=== PATIENT | female | born 1960 | race Hispanic/Latino ===

== ENCOUNTER 2016-12-21 17:56 | Emergency (ER) | payer BC ==
[2016-12-21 18:32] VITALS: BMI 24.3
[2016-12-21 18:37] VITALS: TEMP 98.7; O2SAT 95
[2016-12-21] MEDS ORDERED: Lidocaine 5% Patch TD STA (19:54)
--- NOTE | 2016-12-21 19:54 | ED PDOC ---
Arrival/HPI - General Chief Complaint: Back Pain Time Seen by Provider: 12/21/16 19:46 Historian: Patient - History of Present Illness Narrative History of Present Illness (Text): 12/21/16 19:47 56 y/o female, pmh including htn/asthma/chronic lower back pain, nkda, c/o lower back pain on and off this week with no fall or trauma. Aching pain, aggravated by movement, radiating to the rt. lower extremity, no calf pain, no urinary or bowel incontinence or retention, no flank pain, no night sweat, no dizziness, no other medical or psychological complaints. Past Medical History - Provider Review Nursing Documentation Reviewed: Yes - Infectious Disease Hx of Infectious Diseases: None - Tetanus Immunization Tetanus Immunization: Up to Date - Reproductive Menopause: Yes - Cardiac Hx Hypertension: Yes - Pulmonary Hx Asthma: Yes - Neurological Hx Neurological Disorder: No Hx Migraine: Yes - HEENT Hx HEENT Disorder: No - Renal Hx Renal Disorder: No - Endocrine/Metabolic Hx Hypothyroidism: Yes - Hematological/Oncological Hx Blood Disorders: No - Integumentary Hx Dermatological Disorder: No - Musculoskeletal/Rheumatological Hx Musculoskeletal Disorders: No - Gastrointestinal Hx Gastrointestinal Disorders: No - Genitourinary/Gynecological Hx Genitourinary Disorders: No - Psychiatric Hx Anxiety: Yes Hx Bipolar Disorder: No Hx Depression: No Hx Physical Abuse: No Hx Substance Use: No - Surgical History Hx Thyroidectomy: Yes (11yrs old) - Anesthesia Hx Anesthesia: Yes Hx Anesthesia Reactions: No Hx Malignant Hyperthermia: No - Suicidal Assessment Feels Threatened In Home Enviroment: No Family/Social History - Physician Review Nursing Documentation Reviewed: Yes Family/Social History: Unknown Family HX Smoking Status: Heavy Smoker > 10 Cigarettes Daily Hx Alcohol Use: Yes Hx Substance Use: No Hx Substance Use Treatment: No Allergies/Home Meds Allergies/Adverse Reactions: Allergies No Known Allergies Allergy (Verified 03/24/15 12:00) Home Medications: Home Meds Medication Instructions Recorded Confirmed Alprazolam [Xanax] 0.25 mg PO BID 01/11/14 04/12/15 Nebivolol [Bystolic] 5 mg PO DAILY 01/11/14 04/12/15 Spironolactone [Aldactone] 25 mg PO DAILY 06/29/14 04/12/15 Ursodiol 250 mg PO BID 01/26/15 07/24/15 Zolpidem Tartrate [Ambien] 5 mg PO HS 10/15/14 04/12/15 Albuterol Sulfate [Proair Hfa] 2 puff IH PRN PRN 03/24/15 04/12/15 Review of Systems - Review of Systems Constitutional: absent: Fatigue, Fevers Eyes: absent: Vision Changes ENT: absent: Hearing Changes Respiratory: absent: Cough, Sputum Cardiovascular: absent: Chest Pain Gastrointestinal: absent: Abdominal Pain, Nausea, Vomiting Genitourinary Female: absent: Dysuria, Frequency, Hematuria, Urine Output Changes, Vaginal Bleeding, Vaginal Discharge, Other Musculoskeletal: Back Pain. absent: Arthralgias, Neck Pain, Joint Swelling, Myalgias Skin: absent: Rash, Pruritis, Skin Lesions, Laceration, Abscess, Ulcer, Cellulitis Neurological: absent: Headache, Dizziness, Focal Weakness, Gait Changes, Speech Changes, Facial Droop, Disequilibrium, Seizure, Other Physical Exam Vital Signs Reviewed: Yes Vital Signs Temp Pulse Resp BP Pulse Ox 12/21/16 18:32 98.7 F 77 18 144/93 H 95 Temperature: Afebrile Blood Pressure: Normal Pulse: Regular Respiratory Rate: Normal Appearance: Positive for: Well-Appearing, Non-Toxic, Comfortable Pain Distress: Moderate Mental Status: Positive for: Alert and Oriented X 3 - Systems Exam Head: Present: Atraumatic, Normocephalic Pupils: Present: PERRL Extroacular Muscles: Present: EOMI Conjunctiva: Present: Normal Mouth: Present: Moist Mucous Membranes Neck: Present: Normal Range of Motion Respiratory/Chest: Present: Clear to Auscultation, Good Air Exchange. No: Respiratory Distress, Accessory Muscle Use Cardiovascular: Present: Regular Rate and Rhythm, Normal S1, S2. No: Murmurs Abdomen: Present: Normal Bowel Sounds. No: Tenderness, Distention, Peritoneal Signs Back: Present: Normal Inspection, Pain with Leg Raise (unable to perform due to pain). No: CVA Tenderness, Midline Tenderness, Paraspinal Tenderness, Decubitus Ulcer Upper Extremity: Present: Normal Inspection. No: Cyanosis, Edema Lower Extremity: Present: Normal Inspection. No: Edema Neurological: Present: GCS=15, CN II-XII Intact, Speech Normal Skin: Present: Warm, Dry, Normal Color. No: Rashes Psychiatric: Present: Alert, Oriented x 3, Normal Insight, Normal Concentration Medical Decision Making ED Course and Treatment: 12/21/16 19:56 -toradol IM/flexeril/lidoderm patch -observe and reassess 12/21/16 20:43 -Pt. feels better now, no focal neurological deficits, cane ordered. Pt. stated that she has her own orthopedic spine doctor she's been following up which I advised her to continue. -Discharge home with mobic, lidoderm patch, muscle relaxant, cane, heat compression, follow up with your own pmd and orthopedic workers compensation claims specialist within 2 days, return to the ER for any new or worsening signs or symptoms. - Medication Orders Current Medication Orders: Discontinued Medications Cyclobenzaprine HCl (Flexeril) 10 mg PO STAT STA Stop: 12/21/16 19:55 Last Admin: 12/21/16 20:14 Dose: Not Given Non-Admin Reason: Patient Refused Ketorolac Tromethamine (Toradol) 60 mg IM STAT STA Stop: 12/21/16 19:55 Last Admin: 12/21/16 20:14 Dose: 60 MG IM Administration Charges Document 12/21/16 20:14 YP (Rec: 12/21/16 20:14 YP [id number]) Injection Site MAR Injection Site Right Gluteus Sarmad Charges for Administration # of IM Administrations 1 Lidocaine (Lidoderm) 1 ea TD STAT STA Stop: 12/21/16 19:55 Last Admin: 12/21/16 20:14 Dose: 1 EA MAR Transdermal Patch Site Document 12/21/16 20:14 YP (Rec: 12/21/16 20:14 YP [id number]) Transdermal Patch Site Transdermal Patch Site Right Lower Back - PA / [employer]TING [employer] / Resident Statement MD/DO has reviewed & agrees with the documentation as recorded. Disposition/Present on Arrival - Present on Arrival Any Indicators Present on Arrival: No History of DVT/PE: No History of Uncontrolled Diabetes: No Urinary Catheter: No History of Decub. Ulcer: No History Surgical Site Infection Following: None - Disposition Have Diagnosis and Disposition been Completed?: Yes Diagnosis: Chronic lower back pain, Sciatica Disposition: HOME/ ROUTINE Disposition Time: 19:57 Patient Plan: Discharge Patient Problems: Current Active Problems Problem Status Diagnosed Chronic lower back pain Acute Sciatica Acute Condition: IMPROVED Additional Instructions: Discharge home with mobic, lidoderm patch, muscle relaxant, cane, heat compression, follow up with your own pmd and orthopedic workers compensation claims specialist within 2 days, return to the ER for any new or worsening signs or symptoms. Prescriptions: Lidocaine 5% [Lidoderm] 1 patch TOP DAILY PRN #14 patch PRN Reason: Other Meloxicam [Mobic] 15 mg PO DAILY PRN #14 tab PRN Reason: Other Methocarbamol [Robaxin] 2 tab PO TID PRN #24 tab PRN Reason: Other Referrals: Namrata Albrecht MD [Primary Care Provider] - Follow up with primary Paul Dumont III, MD [Medical Doctor] - Follow up with primary [facility] [place]] - Follow up with primary Forms: WORK NOTE
[2016-12-21 21:05] VITALS: BP 134/86; PULSE 72; RESP 16
== END 2016-12-21 21:10 | disposition home or self-care (01) ==
LOC: ED 17:56
DX: G89.29 Other chronic pain (principal); M54.5 Low back pain; M54.30 Sciatica, unspecified side; F17.210 Nicotine dependence, cigarettes, uncomplicated; I10 Essential (primary) hypertension
CPT/HCPCS: 96372; 99283; J1885

== ENCOUNTER 2017-05-08 01:15 | Observation (INO) | payer BC ==
[2017-05-08 02:00] LABS: ALB/GLOB RATIO 1.2 (1.1-1.8); ALKALINE PHOSPHATASE 115 U/L (38-133); ALT/SGPT 63 U/L (7-56); AST/SGOT 42 U/L (15-39); BILIRUBIN,TOTAL 0.3 mg/dL (0.2-1.3); BLOOD UREA NITROGEN 12 mg/dL (7-21); CALCIUM 9.1 mg/dL (8.4-10.5); CARBON DIOXIDE 25 mmol/L (21-33); CHLORIDE 104 mmol/L (98-107); GFR AFRICAN-AMERICAN > 60; GLUCOSE,RANDOM 104 mg/dL (70-110); MAGNESIUM 1.8 mg/dL (1.7-2.2); POTASSIUM 3.7 mmol/L (3.6-5.0); SODIUM 141 mmol/L (132-148); TOTAL PROTEIN 7.1 g/dL (5.8-8.3)
--- NOTE | 2017-05-08 02:01 | ED PDOC ---
Arrival/HPI - General Chief Complaint: Chest Pain Time Seen by Provider: 05/08/17 01:30 Historian: Patient - History of Present Illness Narrative History of Present Illness (Text): 05/08/17 02:05 56 year old female, whose past medical history includes hypertension, asthma, chronic lower back pain, and partial thyroidectomy, presents to the emergency department complaining of constant retro-sternal chest discomfort. Patient describes discomfort as pressure. No relieving or exacerbating factors and does not radiate to the back. No ripping or tearing sensation. Patient notes no shortness of breath, but denies of any other complaints. Symptom Onset: Sudden Context: Home Past Medical History - Provider Review Nursing Documentation Reviewed: Yes - Infectious Disease Hx of Infectious Diseases: None - Tetanus Immunization Tetanus Immunization: Up to Date - Cardiac Hx Hypertension: Yes Hx Hypotension: Yes Other/Comment: "blood pressure goes up and down" - Pulmonary Hx Asthma: Yes - Neurological Hx Neurological Disorder: No HX Cerebrovascular Accident: Yes Hx Migraine: Yes - HEENT Hx HEENT Disorder: No - Renal Hx Renal Disorder: No - Endocrine/Metabolic Hx Hypothyroidism: Yes Other/Comment: Partial thyroidectomy - Hematological/Oncological Hx Blood Disorders: No Hx Hepatitis C: Yes - Integumentary Hx Dermatological Disorder: No - Musculoskeletal/Rheumatological Hx Musculoskeletal Disorders: No - Gastrointestinal Hx Gastrointestinal Disorders: No - Genitourinary/Gynecological Hx Genitourinary Disorders: No Hx Urinary Tract Infection: Yes (+ yeast infection) - Psychiatric Hx Anxiety: Yes Hx Bipolar Disorder: No Hx Depression: No Hx Physical Abuse: No Hx Substance Use: No - Surgical History Hx Thyroidectomy: Yes (11yrs old) - Anesthesia Hx Anesthesia: Yes Hx Anesthesia Reactions: No Hx Malignant Hyperthermia: No - Suicidal Assessment Feels Threatened In Home Enviroment: No Family/Social History - Physician Review Nursing Documentation Reviewed: Yes Family/Social History: No Known Family HX Smoking Status: Heavy Smoker > 10 Cigarettes Daily Hx Alcohol Use: Yes Hx Substance Use: No Hx Substance Use Treatment: No Allergies/Home Meds Allergies/Adverse Reactions: Allergies No Known Allergies Allergy (Verified 03/24/15 12:00) Home Medications: Home Meds Medication Instructions Recorded Confirmed Alprazolam [Xanax] 0.25 mg PO BID 01/11/14 05/08/17 Nebivolol [Bystolic] 5 mg PO DAILY 01/11/14 05/08/17 Spironolactone [Aldactone] 25 mg PO DAILY 06/29/14 05/08/17 Zolpidem Tartrate [Ambien] 5 mg PO HS PRN 10/15/14 05/08/17 Nitrofurantoin Macrocrystals 1 cap PO Q12H 05/08/17 05/08/17 [Macrobid] traMADol [Ultram] 1 tab PO DAILY PRN 05/08/17 05/08/17 Physical Exam - Physical Exam Narrative Physical Exam (Text): 05/08/17 02:10 - Review of Systems Constitutional: Normal. absent: Fatigue, Weight Change, Fevers Eyes: Normal ENT: Normal Respiratory: Normal. absent: Cough, Sputum, SOB Cardiovascular: Normal Chest pain (retro-sternal chest pressure, discomfort ) absent: Palpitations, Syncope Gastrointestinal: Normal absent: Abdominal pain, Diarrhea, Nausea, Vomiting Genitourinary: Normal. absent: Dysuria, Frequency, Hematuria Musculoskeletal: Normal. absent: Arthralgias, Back Pain, Neck Pain Skin: Normal Neurological: Normal absent: Focal Weakness Endocrine: Normal Hemo/Lymphatic: Normal Psychiatric: Normal - Physical exam Patient appears age appropriate, speaking full sentences without difficulty - Systems Exam Head: Present: Atraumatic, Normocephalic Pupils: Present: PERRL Extraocular Muscles: Present: EOMI Conjunctiva: Present: Normal Mouth: Present: Moist Mucous Membranes Neck: Present: Normal Range of Motion. No: MIDLINE TENDERNESS, Paraspinal Tenderness Respiratory/Chest: Present: Clear to Auscultation, Good Air Exchange. No: Respiratory Distress, Accessory Muscle Use, Tachypnic Cardiovascular: Present: Regular Rate and Rhythm, Normal S1, S2, Peripheral Pulses Present. No: Murmurs Abdomen: Present: Normal Bowel Sounds, No: Tenderness, Peritoneal Signs, Rebound, Guarding, Distention Back: Present: Normal Inspection. No: Midline Tenderness, Paraspinal Tenderness Upper Extremity: Present: Normal Inspection. No: Cyanosis, Edema Lower Extremity: Present: Normal Inspection. No: Edema Neurological: Present: GCS=15, Speech Normal, cranial nerves II through XII fully intact with no cerebellar abnormality, neuro-sensory fully intact. No focal neurological deficits. Skin: Present: Warm, Dry, Normal Color. No: Rashes Lymphatic: Present: OX3, NI, NC Psychiatric: Present: Alert, Oriented x 3, Normal Insight, Normal Concentration Vital Signs Reviewed: Yes Vital Signs Temp Pulse Resp BP Pulse Ox 05/08/17 02:59 61 16 111/77 95 05/08/17 01:24 98.1 F 80 20 148/76 97 Temperature: Afebrile Blood Pressure: Normal Pulse: Regular Respiratory Rate: Normal Appearance: Positive for: Well-Appearing Pain Distress: None Mental Status: Positive for: Alert and Oriented X 3 Medical Decision Making ED Course and Treatment: Impression: 56 year old female with constant retro-sternal chest discomfort described as pressure. No acute finding on physical exam Plan: -- Chest X-ray -- Urinalysis -- Urine Culture -- Aspirin -- Nitrostat -- Reassess and disposition Prior Visits: Notes and results from previous visits were reviewed. Patient was last seen in the emergency department on 12/21/2016 for lower back pain. Patient was discharged home. Progress Notes: EKG shows NSR at [address]-segment elevations, frequent PVCs. Interpreted by me. No evolving changes on repeat EKG. 05/08/17 02:30 Chest X-ray read and interpreted by me, which shows no cardiomegaly, no pneumothorax, no effusions. 05/08/17 02:[address] Allen and accepts patient for observation with Dr. Clinton on consult. Reevaluation: I have discussed the results and plan with the patient, who expresses understanding. Patient given the opportunity to ask question, all questions were answered and there is agreement with the plan to be admitted to the hospital. Patient states she is feeling better and her cp has resolved. - Lab Interpretations Lab Results: 05/08/17 01:25 05/08/17 01:25 Lab Results 05/08/17 01:50: Urine Color Yellow, Urine Appearance Clear, Urine pH 6.0, Ur Specific [place] 1.015, Urine Protein Negative, Urine Glucose (UA) Negative, Urine Ketones Negative, Urine Blood Negative, Urine Nitrate Negative, Urine Bilirubin Negative, Urine Urobilinogen 1.0 H, Ur Leukocyte Esterase Small H, Urine RBC 1 - 3, Urine WBC 0 - 2, Ur Epithelial Cells 3 - 4, Urine Bacteria Many , Urine Other Fiber 05/08/17 01:25: Sodium 141, Potassium 3.7, Chloride 104, Carbon Dioxide 25, Anion Gap 16, BUN 12, Creatinine 0.7, Est GFR ( Amer) > 60, Est GFR (Non- Af Amer) > 60, Random Glucose 104, Calcium 9.1, Magnesium 1.8, Total Bilirubin 0.3, AST 42 H, ALT 63 H, Alkaline Phosphatase 115, Lactate Dehydrogenase 391, Total Creatine Kinase 61, Troponin I < 0.01, Total Protein 7.1, Albumin 3.9, Globulin 3.2, Albumin/Globulin Ratio 1.2 05/08/17 01:25: PT 10.8, INR 1.00, APTT 30.0 05/08/17 01:25: WBC 10.1 D, RBC 4.50, Hgb 14.1, Hct 40.5, MCV 90.0, MCH 31.3, MCHC 34.8, RDW 13.5, Plt Count 210, MPV 11.7 H, Gran % 44.2 L, Lymph % (Auto) 41.9 H, Dillon % (Auto) 10.5 H, Eos % (Auto) 3.1, Baso % (Auto) 0.3, Gran # 4.44, Lymph # 4.2 H, Dillon # 1.1 H, Eos # 0.3, Baso # 0.03 I have reviewed the lab results: Yes - RAD Interpretation Radiology Orders: 05/08/17 01:31 CHEST PORTABLE [RAD] Stat - Medication Orders Current Medication Orders: Discontinued Medications Aspirin (Aspirin) 325 mg PO STAT STA Stop: 05/08/17 01:31 Last Admin: 05/08/17 01:40 Dose: 325 mg Nitroglycerin (Nitrostat Sl Tab) 0.4 mg SL STAT STA Stop: 05/08/17 01:31 Last Admin: 05/08/17 01:40 Dose: 0.4 mg - Scribe Statement The provider has reviewed the documentation as recorded by the Abhijit Harvey Provider Scribe Attestation: All medical record entries made by the Abhijit were at my direction and personally dictated by me. I have reviewed the chart and agree that the record accurately reflects my personal performance of the history, physical exam, medical decision making, and the department course for this patient. I have also personally directed, reviewed, and agree with the discharge instructions and disposition. Disposition/Present on Arrival - Present on Arrival Any Indicators Present on Arrival: No History of DVT/PE: No History of Uncontrolled Diabetes: No Urinary Catheter: No History of Decub. Ulcer: No History Surgical Site Infection Following: None - Disposition Have Diagnosis and Disposition been Completed?: Yes Diagnosis: Chest pain Disposition: HOSPITALIZED Disposition Time: 02:35 Patient Plan: Observation Condition: STABLE
[2017-05-08 02:02] LABS: BASO # 0.03 K/mm3 (0.0-2.0); BASO % 0.3 % (0.0-3.0); EOS # 0.3 (0.0-0.7); EOS % 3.1 % (1.5-5.0); GRAN # 4.44 (1.4-6.5); GRAN % 44.2 % (50.0-68.0); HEMATOCRIT 40.5 % (36.0-48.0); LYMPH # 4.2 (1.2-3.4); LYMPH % 41.9 % (22.0-35.0); MEAN CORPUSCULAR HEMOGLOBIN 31.3 pg (25.0-35.0); MEAN CORPUSCULAR HGB CONC 34.8 g/dl (31.0-37.0); MEAN PLATELET VOLUME 11.7 fl (7.0-11.0); MONO # 1.1 (0.1-0.6); MONO % 10.5 % (1.0-6.0); RED CELL DISTRIBUTION WIDTH 13.5 % (11.5-14.5); WHITE BLOOD COUNT 10.1 10^3/ul (4.5-11.0)
[2017-05-08 02:05] LABS: URINE BILIRUBIN NEGATIVE (NEGATIVE); URINE BLOOD NEGATIVE (NEGATIVE); URINE GLUCOSE (UA) NEGATIVE (NEGATIVE); URINE KETONE NEGATIVE (NEGATIVE); URINE LEUKOCYTE ESTERASE SMALL Leu/uL (NEGATIVE); URINE PROTEIN NEGATIVE mg/dL (<30 mg/dL)
[2017-05-08 02:06] LABS: URINE APPEARANCE CLEAR (CLEAR); URINE COLOR YELLOW (YELLOW)
[2017-05-08 02:12] LABS: TROPONIN I < 0.01 ng/mL
[2017-05-08 02:20] LABS: URINE BACTERIA MANY (NEG); URINE WBC 0 - 2 /hpf (0-6)
[2017-05-08 04:44] VITALS: BMI 23.3
--- NOTE | 2017-05-08 11:18 | RAD ---
HISTORY: cp COMPARISON: 03/24/2015 FINDINGS: LUNGS: No active pulmonary disease. PLEURA: No significant pleural effusion identified, no pneumothorax apparent. CARDIOVASCULAR: Normal. OSSEOUS STRUCTURES: No significant abnormalities. VISUALIZED UPPER ABDOMEN: Normal. OTHER FINDINGS: None. IMPRESSION: No active disease.
--- NOTE | 2017-05-08 13:21 | CARD ---
APPROVED REPORT EKG Measurement Heart [id number] [place] [id number] <Conclusion> Sinus rhythm with frequent premature ventricular complexes Otherwise normal ECG
--- NOTE | 2017-05-08 13:23 | CARD ---
APPROVED REPORT EKG Measurement Heart [id number] [place] [id number] <Conclusion> Sinus rhythm with frequent premature ventricular complexes Possible Left atrial enlargement Borderline ECG
--- NOTE | 2017-05-08 13:24 | CARD ---
APPROVED REPORT EKG Measurement Heart [id number] [place] [id number] <Conclusion> Sinus rhythm with frequent premature ventricular complexes Possible Left atrial enlargement Borderline ECG
--- NOTE | 2017-05-08 16:45 | CON ---
DATE: 05/08/2017 REASON FOR CONSULTATION: Chest pain. HISTORY OF PRESENT ILLNESS: This is a 56-year-old woman smoker with history of hypertension, COPD, and asthma, who was admitted yesterday through the emergency room, complaining of a pressure type upper sternal discomfort which began the evening before. It got worse yesterday. It did not respond to local measures, change in body position or activity. It was not associated with shortness of breath. It was not pleuritic. There was no orthopnea, PND, syncope, presyncope, lightheadedness, dizziness, vertigo, palpitations, edema, claudication, fever, chills, cough, sputum production, hemoptysis, abdominal pain, nausea, vomiting, diarrhea, constipation, or melena. PAST MEDICAL HISTORY: Notable for COPD, asthma. She has had hospitalizations for bronchitis. There is a history of hypertension. She sees Dr. Kennedy. There is a history of a thyroid nodule, hepatitis C, chronic back pain. Around 10 or more years ago, she underwent a cardiac catheterization in [facility]. Apparently, this study was unremarkable. She had a stress test many years ago, but not recently. There is no history of rheumatic fever, myocardial infraction, congestive heart failure, diabetes, stroke, TIA, or gout. MEDICATION AT THE TIME OF ADMISSION: Includes spironolactone (taken sporatically), Bystolic, Xanax, Ambien, nitrofurantoin, and Ultram. ALLERGIES: THERE ARE NO MEDICATION ALLERGIES. SOCIAL HISTORY: She lives at home with her children. She is . She works for the [employer]. She smokes approximately one half pack of cigarettes per day. She does not drink alcohol significantly. There is no drug use reported. FAMILY HISTORY: Notable for heart disease. REVIEW OF SYSTEMS: A 10-point review of systems is otherwise unremarkable expect as noted above. PHYSICAL EXAMINATION: GENERAL: She is a well-developed woman, lying on bed on telemetry in no acute distress. VITAL SIGNS: Notable for sinus rhythm with PVCs. Heart rate 66, afebrile. Blood pressure 107/65, respirations 16 to 20, O2 saturation 95% to 96% on room air. HEENT: Reveals no neck vein distention, thyromegaly, carotid bruits. Mucous membranes are moist. Conjunctivae pink. NECK: Supple. LUNGS: Stanley scattered rhonchi. HEART: Revealed normal 1st and 2nd heart sounds. No murmur gallop rub or click. ABDOMEN: Soft. Bowel sounds were present. No mass, organomegaly, tenderness, rebound, guarding. No CVA tenderness, no palpable abdominal aortic aneurysm. EXTREMITIES: Revealed no cyanosis, clubbing or edema. NEUROLOGIC: She is awake, alert and oriented and intact. PSYCHIATRIC: Normal as to mood and affect. SKIN: Warm and dry. No rash or cellulitis. LABORATORY AND IMAGING: EKG demonstrate regular sinus rhythm with a leftward axis, trigeminal PVCs, poor R wave progression, nonspecific ST wave changes. A portable chest x-ray is not interpreted yet. There is no evidence of CHF, pleural effusion or infiltrate. There are increased markings consistent was COPD by my reading. CBC is unremarkable, PT/INR, PTT unremarkable. Electrolytes BUN, creatinine, blood sugar, magnesium unremarkable. Bilirubin normal. AST, ALT mildly elevated. Alkaline phosphatase 115, CK 61, troponin less then 0.01. Urinalysis noted. IMPRESSION: Alen Miranda is a 56-year-old woman smoker who complains of chest pain, which has some typical features. Her initial EKG shows frequent PVCs, but no acute ST-T wave changes. Her initial troponin is normal. She is a smoker with hypertension and a family history of heart disease. She had a negative cardiac catheterization more than 10 years ago. PLAN: At this time, I agree with current plans. She is on telemetry. I will get an EKG and troponin this morning. I will order a lipid level and an echocardiogram. I will continue her usual medications including spironolactone, Bystolic, and aspirin. She has been advised to discontinue smoking. I will arrange a nuclear stress test for her, perhaps on Wednesday if it can be arranged. She can be out of bed. I will follow along with you. I will make additional recommendations based on her clinical course. Carlito Clinton MD [place]
--- NOTE | 2017-05-09 02:46 | HP ---
HISTORY OF PRESENT ILLNESS: This 56-year-old female was examined at her bedside. Her case was reviewed in detail with Dr. Clinton from Cardiology and her nurse, Geraldine Baeza. The patient presented to the [facility] ER complaining of chest pressure which was substernal, began Wednesday evening and was unrelieved by change in position, antacid, or carbonated beverage. The patient came to the emergency room where she was given sublingual nitroglycerin with resolution and admitted for further evaluation of possible unstable angina because of history of hypertension and chronic smoking. PAST MEDICAL HISTORY: The patient's past medical history is also significant for asthma, COPD, history of chronic hepatitis C for which she follows with Dr. Shane Low, Gastroenterology, but is taking no medication for hepatitis C at present. She has a history of a stable thyroid nodules, degenerative arthritis, and according to the patient she had a cardiac catheterization at the [facility] approximately 10 years ago which was reportedly unremarkable. FAMILY HISTORY: Significant for coronary artery disease. SOCIAL HISTORY: The patient smokes 1 pack of cigarettes daily. Does not drink alcohol daily. Denies any IV drug misuse and is employed as clerical worker at the [employer]. ALLERGIES: SHE DENIES ANY ALLERGIES TO MEDICATIONS. CURRENT MEDICATIONS: Includes Xanax, Ambien, Macrobid, Ultram, Bystolic, and Aldactone. REVIEW OF SYSTEMS: Head review, no headache or seizure. Eyes review, no change in visual acuity. Ear review, no hearing loss. Throat review, no swallowing difficulty. Neck review, no stiffness. Cardiac review, she has a history of chronic hypertension. Pulmonary, chronic obstructive pulmonary disease. She is a chronic smoker. GI, no knowledge of bleeding ulcer, but does have hepatitis C. She denies hematemesis or melena. , no dysuria, but was treated by a local urgent care recently for urinary tract infection. Vascular, no claudication. Psychological, chronic anxiety and insomnia. Endocrinologic, denies any knowledge of diabetes mellitus. PHYSICAL EXAMINATION: VITAL SIGNS: school bus monitor showing normal sinus rhythm with occasional PVCs. Temperature 97, respirations 16, pulse 97, blood pressure 116/77 with a pulse ox of 96% on room air. HEENT: Head is normocephalic, atraumatic. Eyes, no icterus. Ears, clear. Throat, noninjected. NECK: Supple. HEART: S1, S2. No pathological rubs, murmurs, or gallops. LUNGS: Clear to auscultation. ABDOMEN: Soft and nontender. No palpable organomegaly. No rebound. No guarding. No tenderness. EXTREMITIES: No clubbing, no cyanosis, no edema. SKIN: Without rash. NEUROLOGIC Intact. PSYCHOLOGICAL: Alert and oriented x3. VASCULAR: Legs warm to touch. LABORATORY DATA: White count 10,100, hemoglobin 14.1, hematocrit 40.5, platelets 210,000. PT/INR 1.0, PTT 30.6. Sodium 141, K 3.7, chloride 104, bicarb 25, BUN 12, creatinine 0.7, random blood sugar 104, magnesium normal 1.8, bilirubin normal 0.3, AST 42, ALT 63, alk phos 115. CPK 61, first troponin less than 0.01, second troponin 0.05, indeterminate. Urinalysis many bacteria. IMPRESSION: A 56-year-old female with chronic hypertension, smoking history admitted with history consistent with typical chest pain, rule out unstable angina and comorbidities of chronic obstructive pulmonary disease, chronic hypertension, anxiety neurosis, insomnia, degenerative arthritis, recent urinary tract infection. PLAN: At present, the patient will continue on the cardiac unit. She has been ordered to have a fasting lipid panel in the a.m. A repeat urine culture has been received and the patient is to continue on Aldactone 25 mg p.o. daily, aspirin 81 mg p.o. daily, Bystolic 5 mg p.o. daily, nitroglycerin sublingual p.r.n. chest pain, Xanax 0.25 mg p.o. b.i.d. p.r.n. anxiety. She is ordered to have a heart healthy diet. She is scheduled for 2D echocardiogram of the heart, interpreted by Dr. Carlito Clinton from Cardiology. He has ordered a stress test for the patient and stool for occult blood, I's and O's and out of bed to chair as tolerated. All of the above was discussed in detail with the patient. Hopefully, she will be cooperative and remained hospitalized for the evaluation, however, she did mention that she was considering signing against medical advice. This was discussed with the patient and her nurse. Hopefully, she will complete cardiac workup as outlined above. Venus Allen MD [facility] # [id number] KENIA
[2017-05-09 07:51] LABS: CHOLESTEROL 143 mg/dL (130-200)
--- NOTE | 2017-05-09 07:58 | CARD ---
APPROVED REPORT EXAM: Two-dimensional and M-mode echocardiogram with Doppler and color Doppler. Other Information Quality : GoodRhythm : INDICATION Chest Pain 2D DIMENSIONS IVSd1.1 (0.7-1.1cm)LVDd3.9 (3.9-5.9cm) PWd1.1 (0.7-1.1cm)LVDs2.9 (2.5-4.0cm) FS (%) 25.3 %LVEF (%)50.0 (>50%) M-Mode DIMENSIONS Left Atrium (MM)3.60 (2.5-4.0cm)Aortic Root2.80 (2.2-3.7cm) Aortic Cusp Exc.2.00 (1.5-2.0cm) Aortic Valve AoV Peak Emgqklrd353.0cm/s Mitral Valve MV E Gaeimvdf23.7cm/sMV A Qlpiihwc55.0cm/sE/A ratio1.3 TDI Lateral E' Peak V9.65cm/sMedial E' Peak V8.19cm/sE/Lateral E'9.6 E/Medial E'11.3 Tricuspid Valve TR Peak Jdbxrnoc528wa/sRAP [id number] Peak Gr.23mmHg [id number] LEFT VENTRICLE The left ventricle is normal size. There is normal left ventricular wall thickness. The left ventricular function is normal. The left ventricular ejection fraction is within the normal range. There is normal LV segmental wall motion. RIGHT VENTRICLE The right ventricle is normal size. ATRIA The left atrium size is normal. The right atrium size is normal. The interatrial septum is intact with no evidence for an atrial septal defect. AORTIC VALVE The aortic valve is mildly thickened. MITRAL VALVE The mitral valve is normal in structure. Mitral regurgitation is trace. TRICUSPID VALVE The tricuspid valve is normal in structure. There is trace tricuspid regurgitation. PULMONIC VALVE The pulmonary valve is normal in structure. There is trace pulmonic valvular regurgitation. GREAT VESSELS The aortic root is normal in size. PERICARDIAL EFFUSION There is no pericardial effusion. <Conclusion> The left ventricle is normal size. There is normal left ventricular wall thickness. The left ventricular function is normal.
--- NOTE | 2017-05-09 08:19 | CP.PCM.PN ---
Subjective - Date & Time of Evaluation Date of Evaluation: 05/09/17 Time of Evaluation: 07:00 - Subjective Subjective: Stable on 2R. No CP or SOB. She was very anxious last night and wanted to leave AMA. Today she wants to go home and have an out-pt stress test. I told her that it will be easier to get the stress test done promptly, tomorrow if she stays in. She seems to want to go home but will speak with Dr. Allen. V/S noted. RSR PE: Lungs: clear Cor.: S1S2 Abd.: soft Ext.: no edema Neuro.: alert Labs noted: 2nd trop 05/08 = 0.05, TC = 143, LDL pending ECG: RSR, PVCs (trigeminal). No acute changes Echo: NL LV fx., Trace MR, TR and PI. Objective - Vital Signs/Intake and Output Vital Signs (last 24 hours): Temp Pulse Resp BP Pulse Ox 98.6 F 84 19 132/86 95 05/09/17 06:00 05/09/17 06:00 05/09/17 06:00 05/09/17 06:00 05/09/17 06:00 Intake and Output: 05/09/17 05/09/17 06:59 18:59 Intake Total 950 Output Total 4 Balance 946 - Medications Medications: Current Medications Alprazolam (Xanax) 0.25 mg PO BID PRN; Protocol PRN Reason: Anxiety Stop: 05/15/17 18:01 Last Admin: 05/08/17 14:13 Dose: 0.25 mg Aspirin (Aspirin Chewable) 81 mg PO DAILY [facility] Last Admin: 05/08/17 10:46 Dose: Not Given Non-Formulary Medication (Bystolic) 5 mg PO DAILY [facility] Spironolactone (Aldactone) 25 mg PO DAILY [facility] Last Admin: 05/08/17 10:45 Dose: 25 mg - Labs Labs: PT 10.8 Seconds (9.9-11.8) 05/08/17 01:25 INR 1.00 (0.93-1.08) 05/08/17 01:25 APTT 30.0 Seconds (23.7-30.8) 05/08/17 01:25 Assessment and Plan - Assessment and Plan (Free Text) Assessment: Chest Pain PVCs COPD/Asthma/Smoker HBP Hep. C Thyroid Nodule Chronic Back Pain H/O neg cath more than 10 years ago Plan: Nuclear stress test in AM. D/C tobacco d/w her again. She wants a "drag" as soon as she leaves the hospital. If she leaves AMA, I will schedule an out-patient nuclear stress test as soon as possible but it won't be tomorrow because of insurance issues. Continue ASA, Bystolic, spironolactone OOB ad bonnie
[2017-05-09] MEDS: BYSTOLIC 5 MG PO SCH (09:33)
[2017-05-09] MEDS ORDERED: BYSTOLIC 5 MG PO SCH (10:00)
[2017-05-10 00:49] VITALS: O2SAT 98
--- NOTE | 2017-05-10 03:50 | PN ---
DATE: 05/09/2017 SUBJECTIVE: This 56-year-old female was examined at her bedside and her case was reviewed at the bedside with her nurse, Rebecca Garcia. The patient was seen earlier today by Dr. Carlito Clinton from cardiology who has recommended that the patient remained hospitalized for a stress thallium test which he has scheduled for the a.m. The patient at present remains anxious and is requesting additional dosing of Xanax. She has had no further chest pain, jaw pain, arm pain or epigastric discomfort and remains in a normal sinus rhythm on the cardiac/vascular sonographer.. PHYSICAL EXAMINATION VITAL SIGNS: Her vital signs show temperature of 97.9, respirations of 20, pulse of 65 and blood pressure of 118/80, and her pulse oximetry is 95% on room air HEENT: Head is normocephalic and atraumatic. Eyes; no icterus. Ears are clear. Throat is noninjected. NECK: Supple. HEART: Regular S1 and S2. LUNGS: Clear. ABDOMEN: Soft. EXTREMITIES: No edema. SKIN: Without rash. NEUROLOGICAL: Intact. PSYCHOLOGICAL: High anxiety. VASCULAR: Legs warm to touch. LABORATORY DATA: White count of 10,100, hemoglobin of 14.1, hematocrit of 40.5, and platelets of 210,000. PT/INR of 1.0, and PTT of 30.0. Sodium of 141, potassium of 3.7, chloride of 104, bicarbonate of 25, BUN of 12, creatinine of 0.7, and random glucose of 104. Bilirubin is 0.3, AST is 42, ALT is 63, and alkaline phosphatase is 115. Cholesterol is 143, triglycerides are 115, LDL is 78 and HDL is 38. Urine culture shows no growth. IMPRESSION: This is a 56-year-old female with typical chest pain in the setting of chronic hypertension and smoking, rule out atherosclerotic heart disease and unstable angina with comorbidities of anxiety, neurosis, insomnia and hepatitis C. PLAN: As discussed with Dr. Clinton, local delivery truck driver and her nurse, Rebecca Garcia at her bedside, the patient is to remain hospitalized. She is scheduled to be n.p.o. after midnight for stress thallium test with Dr. Clinton in the a.m. She will continue on Aldactone 25 mg p.o. daily, Ecotrin 81 mg p.o. daily, Bystolic 5 mg p.o. daily, and Xanax 0.25 mg has been increased to 3 times daily p.r.n. anxiety. She remains on heart-healthy diet, n.p.o. after midnight. She is aware that her 2D echocardiogram remains pending and she will need cardiac clearance prior to discharge orders. All this was explained in detail with the patient at her bedside. All questions were answered. Nurse was present. Venus Allen MD MTDD
--- NOTE | 2017-05-10 07:32 | CP.PCM.PN ---
Subjective - Date & Time of Evaluation Date of Evaluation: 05/10/17 Time of Evaluation: 07:00 - Subjective Subjective: Stable on 2R. No CP or SOB. V/S noted. PE: Lungs: clear Cor.: S1S2 Abd.: soft Ext.: no edema Neuro.: alert Labs noted: 2nd trop 05/08 = 0.05, TC = 143, LDL 78 ECG: RSR, PVCs (trigeminal). No acute changes Echo: NL LV fx., Trace MR, TR and PI. Objective - Vital Signs/Intake and Output Vital Signs (last 24 hours): Temp Pulse Resp BP Pulse Ox 98.0 F 68 20 125/65 98 05/10/17 06:00 05/10/17 06:00 05/10/17 06:00 05/10/17 06:00 05/10/17 06:00 Intake and Output: 05/10/17 05/10/17 06:59 18:59 Intake Total 780 Output Total 5 Balance 775 - Medications Medications: Current Medications Alprazolam (Xanax) 0.25 mg PO TID PRN; Protocol PRN Reason: Anxiety Stop: 05/16/17 14:01 Last Admin: 05/09/17 21:12 Dose: 0.25 mg Aspirin (Aspirin Chewable) 81 mg PO DAILY [facility] Last Admin: 05/09/17 09:33 Dose: 81 mg Non-Formulary Medication (Bystolic) 5 mg PO DAILY [facility] Last Admin: 05/09/17 09:33 Dose: 5 mg Spironolactone (Aldactone) 25 mg PO DAILY [facility] Last Admin: 05/09/17 09:33 Dose: 25 mg - Labs Labs: PT 10.8 Seconds (9.9-11.8) 05/08/17 01:25 INR 1.00 (0.93-1.08) 05/08/17 01:25 APTT 30.0 Seconds (23.7-30.8) 05/08/17 01:25 Assessment and Plan - Assessment and Plan (Free Text) Assessment: Chest Pain PVCs COPD/Asthma/Smoker HBP Hep. C Thyroid Nodule Chronic Back Pain H/O neg cath more than 10 years ago Plan: Nuclear stress test today. D/C tobacco. Continue ASA, Bystolic, spironolactone OOB ad bonnie Anxiolytics PRN.
[2017-05-10] MEDS: BYSTOLIC 5 MG PO SCH (11:41)
[2017-05-10 11:58] VITALS: PULSE 58; RESP 18; TEMP 98.5
--- NOTE | 2017-05-10 14:26 | CARD ---
APPROVED REPORT Protocol: BLAYNE Test Type: Sestamibi Stress Test Attending Physician: Dr. Carlito Clinton Referring Physician: Dr. Venus Allen Test Indications: Chest Pain Height:5 ft 1 in Weight:123lbs Medications: Xanax,Aspirin,Bystolic, Aldactone Medical History: 56 y/o woman smoker with chest pain. Target HR: 162 bpm Resting ECG: RSR, PVC's Resting Heart Rate: 77 bpm Resting Blood Pressure: 110/80mmHg Submaximum (85%): 138 bpm POST EXERCISE Reason for Termination: Fatigue Dyspnea Target HR: No Max HR: 139 bpm 87% of Maximum Predicted HR: 162 bpm Exercise duration: 09:09 min:sec, 4 Stage Exercise capacity: 10.3METs Max Blood Pressure: 146/82mmHg Blood Pressure response to exercise: normal resting BP - appropriate response Heart Rate response to exercise: appropriate Chest Pain: No, none Angina index: 0 Arrhythmia: Yes, frequent PVC's which decreased during exercise ST Change: No, none Deviation: 0 mm TEST SUMMARY [id number]/80.21. [id number]:[id number]/80.18. PRETESTHYPERV.00:[id number]/80.18. PRETESTWARM-UP03:[id number]/80.15. EXERCISESTAGE 103:[id number]/80.19. EXERCISESTAGE 203:[id number]/82.14. EXERCISESTAGE 303:[id number]/82.0.08:30 Contrast agent administered EXERCISESTAGE 400:[id number]/82.0. [id number]:[id number]/78.1. INTERPRETATION Stress EKG Conclusion: Symptom limited stress test which was negative for chest pain, ischemia and arrhythmia. Frequent PVC's that diminished during exercise. Mildly reduced functional capacity. Nuclear scans pending. Signed by Carlito Clinton Electronically Approved: 05/10/2017 11:04:19 EXAM: Myocardial Perfusion REST/STRESS Stress Test Type: Exercise Treadmill Imaging Protocol Rest Spect myocardial perfusion imaging was performed in supine position 50 minutes following the injection of 10.7 mCi of Tc-99 Myoview. At peak stress, the patient was injected intravenously with 30.2mCi of Tc-99 tetrofosmin after an exercise time of 9 minutes and 09 seconds. Gated Stress Spect was performed 70 minutes after intravenous Tc-99 Myoview injection. The images were gated to evaluate regional wall motion and calculate ventricular ejection fraction.Images were reconstructed using backfilter projection method in short horizontal and verticle long axis. Spect slices were generated. LV Perfusion The quality of the study is good. The left ventricle is normal in size. The right ventricle is unremarkable. The lung uptake is within normal limits. The distribution of tracer reveals normal uptake pattern throughout the LV myocardium on the stress study. The rest myocardial perfusion study shows no significant change. Wall Motion Wall motion study shows good contractility of the left ventricle. LVEF = 62%. Conclusion 1. Normal SPECT myocardial perfusion study. 2. Normal gated wall motion of the left ventricle.
[2017-05-10 16:48] VITALS: BP 125/74
--- NOTE | 2017-05-11 05:44 | DS ---
FINAL DIAGNOSES: 1. Atypical chest pain. 2. Recent urinary tract infection, resolved. 3. Chronic hypertension. 4. Anxiety neurosis. 5. History of chronic hepatitis C. DISPOSITION: Home. FOLLOWUP: Dr. Clinton from Cardiology, followup with her PMD, Dr. Namrata Larsen, within 48 hours. DISCHARGE DIET: 2 g sodium, soft and bland. Followup with Dr. Shane Low, her Aprn regarding chronic hepatitis C management. DISCHARGE MEDICATIONS: Include: Xanax 0.25 mg p.o. b.i.d. p.r.n. anxiety, Aldactone 25 mg p.o. daily, Bystolic 5 mg p.o. daily. SUMMARY: This is a 56-year-old female was admitted to [facility] with substernal chest pressure and a history of smoking and hypertension. She was seen in consultation by Dr. Carlito Clinton from Cardiology, who performed an echocardiogram that was reported as normal left ventricular size, wall thickness and function. She had trace mitral regurgitation, trace tricuspid regurgitation and trace pulmonic valvular regurgitation. He performed a stress test on the morning of this dictation, the results of which are pending. The patient denies any further chest discomfort, remains in a normal sinus rhythm on the cardiac surgeon and has been consistently admonished regarding her cigarette smoking and need for cessation of this habit. PHYSICAL EXAMINATION: VITAL SIGNS: She is in a normal sinus rhythm with temperature 98.5, respirations 18, pulse 59 and blood pressure 125/65 with the pulse ox of 98% of room air. The patient will be ready for discharge if nuclear stress thallium is reportedly normal. LABORATORY DATA: White count is 10,100, hemoglobin 14.1, hematocrit 45.5, platelet 210,000. Sodium 141, K 3.7, chloride 104, bicarbonate 25, BUN 12, creatinine 0.7. Random blood sugar 104. Bilirubin is 0.3, AST 42, ALT 63 and alkaline phosphatase 115. Microbiology showed urine culture with no growth. If stress test is negative, will be advised to continue Bystolic 5 mg p.o. daily, Ecotrin 81 mg p.o. daily, Aldactone 25 mg p.o. daily and follow up with her PMD and Dr. Clinton and Dr. Low within the next 48 hours. All of this was discussed in detail with the patient and her nurse, Carla. The patient is aware and in agreement with the above. The patient has been advised of any change in signs and symptoms to present or admit to the [facility] ER. Venus Allen MD MTDD
== END 2017-05-10 17:37 | disposition home or self-care (01) ==
LOC: ED 01:15 → ERH 02:35 → 2RNO 03:12 → OBSVTOIN 10:50 → INTOOBSV 10:50
PROVIDERS: ADMIT Internal Medicine; ATTEND Internal Medicine
DX: R07.89 Other chest pain (principal); N39.0 Urinary tract infection, site not specified; B18.2 Chronic viral hepatitis C; I10 Essential (primary) hypertension; F41.1 Generalized anxiety disorder; F17.210 Nicotine dependence, cigarettes, uncomplicated; I08.1 Rheumatic disorders of both mitral and tricuspid valves; I37.1 Nonrheumatic pulmonary valve insufficiency; M19.90 Unspecified osteoarthritis, unspecified site; J44.9 Chronic obstructive pulmonary disease, unspecified; G47.00 Insomnia, unspecified; E04.1 Nontoxic single thyroid nodule; I49.3 Ventricular premature depolarization; G89.29 Other chronic pain; M54.5 Low back pain
CPT/HCPCS: 36415; 71010; 78452; 80053; 80061; 81001; 82550; 83615; 83735; 84484; 85025; 85610; 85730; 87086; 93005; 93017; 93306; 99285; A9502; G0378